=== PATIENT | male | born 1945 | race Caucasian/White ===

== ENCOUNTER 2024-07-17 17:18 | Emergency (ER) | payer MEDICARE, OTHER ==
--- NOTE | 2024-07-17 17:27 | ERPHSYRPT ---
- History of Present Illness Time Seen by Provider: 07/17/24 17:27 Source: patient, family Exam Limitations: no limitations Physician History: This is a morbidly obese 78-year-old white male patient who receives his wound care and medical care out of the [facility]. Patient was visited by the [facility] nurse today and there was a scheduled dressing change which was performed. Because of the sweet pungent odor of layer of yellowgreen covering to his left lower extremity wound and associated redness, pain and swelling to the wound site on the left lower extremity, patient was told to come to the emergency department for evaluation. Patient's last antibiotic was over a month ago. In the last few days he has been feeling ill with muscle aches and pains cough and a headache. Patient has a history of hypothyroidism, prostate issues, gout and is on Plavix. He does not have chest pain. Method of Injury: other (No new injury) Occurred: this afternoon Quality: aching Severity of Pain-Max: mild Severity of Pain-Current: mild Lower Extremities Pain: leg: left, foot: left, ankle: left Modifying Factors: Improves With: nothing Associated Symptoms: none Allergies/Adverse Reactions: ciprofloxacin [From Cipro] Allergy (Verified 07/17/24 17:49) loracarbef [From Lorabid] Allergy (Verified 07/17/24 17:49) Home Medications: Allopurinol 300 mg [Zyloprim 300 mg] 300 mg PO DAILY 07/17/24 [History] Aspirin EC 325 mg [Ecotrin 325 MG] 325 mg PO DAILY 07/17/24 [History] Clopidogrel Bisulfate [Plavix] 75 mg PO DAILY 07/17/24 [History] Diltiazem HCl Cd [Cardizem CD ] 120 mg PO DAILY 07/17/24 [History] Fenofibrate Nanocrystallized [Fenofibrate] 48 mg PO DAILY 07/17/24 [History] Finasteride 5 mg [Proscar 5 MG] 5 mg PO DAILY 07/17/24 [History] Furosemide 40 mg [Lasix 40 MG] 40 mg PO DAILY 07/17/24 [History] Gabapentin [Neurontin ] 600 mg PO BID 07/17/24 [History] Insulin Glargine,Hum.rec.anlog [Liliana Chapmanostar] 74 unit SQ DAILY 07/17/24 [History] Levothyroxine Sodium 175 mcg PO DAILY 07/17/24 [History] Losartan Potassium [Cozaar] 100 mg PO DAILY 07/17/24 [History] Metformin HCl 500 mg [Glucophage 500 MG] 500 mg PO BID 07/17/24 [History] Metoprolol Succinate [Toprol Xl] 100 mg PO BID 07/17/24 [History] Nitroglycerin 0.4 mg Tablet [Nitrostat 0.4 MG Tablet] 0.4 mg PO Q5MIN PRN MR X 3 PRN 07/17/24 [History] Pravastatin Sodium 40 mg PO DAILY 07/17/24 [History] Semaglutide [Ozempic] 1 mg SQ WEEKLY 07/17/24 [History] Travel Risk - International Travel Have you traveled outside of the country in past 3 weeks: No - Emerging Infectious Disease Are you exhibiting symptoms associated with any current EIDs: Yes Symptoms: Cough: New Onset, Headaches/Body Aches/ - Review of Systems Constitutional: No Symptoms Eyes: No Symptoms Ears, Nose, & Throat: No Symptoms Respiratory: Cough Cardiac: No Symptoms Abdominal/Gastrointestinal: No Symptoms Genitourinary Symptoms: No Symptoms Musculoskeletal: No Symptoms Skin: Cellulitis, Other (Yellow-green slime layer left lower extremity wound) Neurological: No Symptoms Psychological: No Symptoms Endocrine: No Symptoms Hematologic/Lymphatic: No Symptoms Immunological/Allergic: No Symptoms All Other Systems: Reviewed and Negative - Past Medical History Pertinent Past Medical History: Yes - Past Surgical History Past Surgical History: Yes - Nursing Vital Signs Nursing Vital Signs: Initial Vital Signs Temperature 98.9 F 07/17/24 17:50 Pulse Rate 90 07/17/24 17:50 Respiratory Rate 20 07/17/24 17:50 Blood Pressure 175/98 07/17/24 17:50 O2 Sat by Pulse Oximetry 97 07/17/24 17:50 Pain Scale Pain Intensity 8 - Physical Exam General Appearance: mild distress, alert, anxiety, obese Eyes, Ears, Nose, Throat Exam: normal ENT inspection, moist mucous membranes Neck Exam: normal inspection, non-tender, supple, full range of motion Cardiovascular/Respiratory Exam: chest non-tender, normal breath sounds, heart sounds normal, no respiratory distress, No regular rate/rhythm Gastrointestinal/Abdominal Exam: non-tender Back Exam: normal inspection, normal range of motion, No CVA tenderness, No vert ebral tenderness Hips Exam: bilateral: non-tender, normal inspection, normal range of motion, no evidence of injury Legs Exam: right leg: non-tender, normal inspection, left leg: soft tissue tenderness (Yellowish-green pungent odor slime layer circumferential mid lower extremity below the knee knee), swelling (Cellulitis), bilateral leg: normal ran ge of motion, no evidence of injury Knees Exam: bilateral knee: non-tender, normal inspection, normal range of motion, no evidence of injury Ankle Exam: right ankle: non-tender, normal inspection, left ankle: soft tissue tenderness, swelling (Cellulitis), bilateral ankle: normal range of motion, no evidence of injury Foot Exam: right foot: non-tender, normal inspection, left foot: soft tissue tenderness, swelling (Cellulitis), bilateral foot: normal range of motion, no evidence of injury Neuro/Tendon Exam: normal sensation, normal motor functions, normal tendon functions, responds to pain, no evidence tendon injury Mental Status Exam: alert, oriented x 3, cooperative Skin Exam: other (See above. Yellowish-green slime layer drainage with pungent odor and cellulitis left lower extremity below the knee) SpO2 Interpretation: normal O2 Delivery: Room Air - Course Nursing assessment & vital signs reviewed: Yes Ordered Tests: Active Orders 24 hr Category Date Time Status IV Insertion STAT Care 07/17/24 18:17 Active Wound Care STAT Care 07/17/24 18:15 Active CHEST 1 VIEW (PORTABLE) Stat Exams 07/17/24 18:18 Taken BLOOD CULTURE Stat Lab 07/17/24 19:15 Received CBC W DIFF Stat Lab 07/17/24 18:15 Completed CMP Stat Lab 07/17/24 18:15 Completed CULTURE,WOUND Stat Lab 07/17/24 18:17 Received Lactic Acid Stat Lab 07/17/24 18:17 Completed Lactic Acid Stat Lab 07/17/24 20:26 Stop Req PROCALCITONIN Stat Lab 07/17/24 18:15 Completed Medication Summary Generic Name Dose Route Start Last Admin Trade Name Freq PRN Reason Stop Dose Admin Ceftazidime 1 gm/ Dextrose 100 mls @ 200 mls/hr 07/17/24 22:00 IV 08/16/24 21:59 Q8HT DEWEY Discontinued Medications Generic Name Dose Route Start Last Admin Trade Name Tato PRN Reason Stop Dose Admin Hydrocodone Bitart/Acetaminophen 10 ml 07/17/24 18:18 07/17/24 18:24 Hydrocodone/Acetaminophen 5 Ml Udcup PO 07/17/24 18:19 10 ml STAT STA Administration Hydrocodone Bitart/Acetaminophen Confirm 07/17/24 18:23 Hydrocodone/Acetaminophen 5 Ml Udcup Administered 07/17/24 18:24 Dose 10 ml .ROUTE .STK-MED ONE Diphenhydramine HCl 25 mg 07/17/24 20:33 Diphenhydramine Hcl 50 Mg/Ml Vial IV 07/17/24 20:34 STAT ONE Diphenhydramine HCl Confirm 07/17/24 20:39 Diphenhydramine Hcl 50 Mg/Ml Vial Administered 07/17/24 20:40 Dose 50 mg .ROUTE .STK-[employer] ONE Lab/Rad Data: Laboratory Result Diagrams 07/17/24 18:15 07/17/24 18:15 Laboratory Results 07/17/24 07/17/24 07/17/24 Range/Units 19:16 18:17 18:15 WBC (4.23-9.07) x10^3/uL RBC (4.63-6.08) x10^6/uL Hgb (13.7-17.5) g/dL Hct (40.1-51.0) % MCV (79.0-92.2) fL MCH (25.7-32.2) pg MCHC (32.3-36.5) g/dL RDW (11.6-14.4) % Plt Count (163-337) x10^3/uL MPV (9.4-12.4) fL Gran % (34.0-67.9) % Immature Gran % (Auto) (0.001-0.429) % Nucleat RBC Rel Count (0.00-0.2) % Eos # (Auto) (0.04-0.54) x10^3/uL Immature Gran # (Auto) (0.001-0.031) x10^3u/L Absolute Lymphs (auto) (1.32-3.57) x10^3/uL Absolute Monos (auto) (0.30-0.82) x10^3/uL Absolute Nucleated RBC (0.00-0.012) x10^3u/L Lymphocytes % (21.8-53.1) % Monocytes % (5.3-12.2) % Eosinophils % (0.8-7.0) % Basophils % (0.2-1.2) % Absolute Granulocytes (1.78-5.38) x10^3/uL Basophils # (0.01-0.08) x10^3/uL Sodium (135-145) mmol/L Potassium (3.5-5.1) mmol/L Chloride (98-107) mmol/L Carbon Dioxide (22-30) mmol/L Anion Gap (5-15) MEQ/L BUN (9-20) mg/dL Creatinine (0.66-1.25) mg/dL Estimated GFR ML/MIN Glucose (74-106) mg/dL Lactic Acid 2.5 H (0.4-2.0) Calcium (8.4-10.2) mg/dL Total Bilirubin (0.2-1.3) mg/dL AST (17-59) U/L ALT (0-50) U/L Alkaline Phosphatase (38-126) U/L Serum Total Protein (6.3-8.2) g/dL Albumin (3.5-5.0) g/dL Procalcitonin 0.094 H (0.030-0.080) ng/mL Influenza Type A Ag NEGATIVE (NEGATIVE) Influenza Type B Ag NEGATIVE (NEGATIVE) RSV (PCR) NEGATIVE (NEGATIVE) SARS-CoV-2 (PCR) POSITIVE A (NEGATIVE) 07/17/24 07/17/24 Range/Units 18:15 18:15 WBC 7.2 (4.23-9.07) x10^3/uL RBC 4.12 L (4.63-6.08) x10^6/uL Hgb 11.8 L (13.7-17.5) g/dL Hct 36.9 L (40.1-51.0) % MCV 89.6 (79.0-92.2) fL MCH 28.6 (25.7-32.2) pg MCHC 32.0 L (32.3-36.5) g/dL RDW 14.0 (11.6-14.4) % Plt Count 232 (163-337) x10^3/uL MPV 10.5 (9.4-12.4) fL Gran % 72.4 H (34.0-67.9) % Immature Gran % (Auto) 1.1 H (0.001-0.429) % Nucleat RBC Rel Count 0.0 (0.00-0.2) % Eos # (Auto) 0.05 (0.04-0.54) x10^3/uL Immature Gran # (Auto) 0.08 H (0.001-0.031) x10^3u/L Absolute Lymphs (auto) 1.11 L (1.32-3.57) x10^3/uL Absolute Monos (auto) 0.71 (0.30-0.82) x10^3/uL Absolute Nucleated RBC 0.00 (0.00-0.012) x10^3u/L Lymphocytes % 15.4 L (21.8-53.1) % Monocytes % 9.8 (5.3-12.2) % Eosinophils % 0.7 L (0.8-7.0) % Basophils % 0.6 (0.2-1.2) % Absolute Granulocytes 5.24 (1.78-5.38) x10^3/uL Basophils # 0.04 (0.01-0.08) x10^3/uL Sodium 143 (135-145) mmol/L Potassium 3.7 (3.5-5.1) mmol/L Chloride 105 (98-107) mmol/L Carbon Dioxide 25 (22-30) mmol/L Anion Gap 15.8 H (5-15) MEQ/L BUN 20 (9-20) mg/dL Creatinine 1.17 (0.66-1.25) mg/dL Estimated GFR 64.6 ML/MIN Glucose 120 H (74-106) mg/dL Lactic Acid (0.4-2.0) Calcium 9.4 (8.4-10.2) mg/dL Total Bilirubin 0.40 (0.2-1.3) mg/dL AST 43 (17-59) U/L ALT 31 (0-50) U/L Alkaline Phosphatase 55 (38-126) U/L Serum Total Protein 7.8 (6.3-8.2) g/dL Albumin 4.0 (3.5-5.0) g/dL Procalcitonin (0.030-0.080) ng/mL Influenza Type A Ag (NEGATIVE) Influenza Type B Ag (NEGATIVE) RSV (PCR) (NEGATIVE) SARS-CoV-2 (PCR) (NEGATIVE) - Progress Progress: unchanged Progress Note: 07/17/24 18:43 My medical decision making and the assignment of moderate complexity to this patient's medical issue today is based on review of the patient's past medical history, review the patient's medication list, review of patient drug allergy l ist, history present illness and physical findings on examination. The workup in this patient includes placement of intravenous line, CBC, CMP, lactic acid level, blood cultures, wound cultures. We will also perform viral test and a chest x-ray. Differential diagnosis includes but is not limited to Pseudomonas left lower extremity wound infection, pneumonia, cellulitis 07/17/24 20:29 I interpreted the patient's laboratory data results. Based on the laboratory data results, the patient is tested positive for COVID. The wound culture is pending. The blood culture results are pending as well. The chest x-ray preliminary report was interpreted by me. There is question of early bibasilar infiltrates/groundglass appearance. The patient states that he is allergic to Lorabid. His reaction was rash. However, he also states that he has been given cephalosporin in the past. The name he does not recall. He was told to watch closely for this type of reaction with the cephalosporin. However he never had a reaction to that medication. We will plate give him a dose of Fortaz 1 mg intravenously and then if he has no reaction we will send a prescription of Levaquin to his pharmacy. Patient has used cephalosporin several times in the past without untoward side effects 07/17/24 20:43 Patient states that he has not short of breath. He has no chest pain. His room air oxygen saturation levels are 95 to 96%. The last antibiotics he was on was over a month ago. 07/17/24 20:46 Counseled pt/family regarding: lab results, diagnosis, need for follow-up, rad results Medical Desision Making - Independent Historian Additional History obtained from: Spouse - Diagnostic Testing Diagnostic test were ordered, analyzed, and reviewed by me: Yes Radiological Interpretation: Interpreted by me - Risk of complications The pt has a mod risk of morbidity or mortality based on: Need for prescription drug management - Departure Departure Disposition: Home Clinical Impression: COVID-19 virus infection, Left leg cellulitis Condition: Stable Critical Care Time: No Referrals: DOCTOR,NO FAMILY [Primary Care Provider] - Follow up/PCP as directed Additional Instructions: Call your primary care provider tomorrow, 07/18/2024 and make them aware that you have tested positive for COVID-19 infection. In addition, asked them to move up your wound care appointment to early next week if possible. Continue your [facility] home health care visits. Take your medications as prescribed. Prescriptions: Hydrocodone/Acetaminophen [Hydrocodone-Acetamn 7.5-325/15] 10 ml PO Q8H PRN #120 ml MDD 30 ml PRN Reason: Cough Levofloxacin [Levaquin 500 MG Tablet] 500 mg PO DAILY #7 tablet
[2024-07-17 18:19] VITALS: TEMP 98.9
[2024-07-17] MEDS ORDERED: HYDROCODONE-ACETAMIN 2.5-108/5 ML SOLUTION ONE (18:23)
[2024-07-17 18:24] LABS: Absolute Neutrophil Ct (ANC) 5.24 x10^3/uL (1.78-5.38); BASOPHIL % 0.6 % (0.2-1.2); Basophil (Absolute #) 0.04 x10^3/uL (0.01-0.08); Eosinophil % 0.7 % (0.8-7.0); Eosinophil (Absolute #) 0.05 x10^3/uL (0.04-0.54); Hematocrit 36.9 % (40.1-51.0); Hemoglobin 11.8 g/dL (13.7-17.5); IMMATURE GRAN # 0.08 x10^3u/L (0.001-0.031); IMMATURE GRAN % 1.1 % (0.001-0.429); Lymphocyte (Absolute #) 1.11 x10^3/uL (1.32-3.57); Lymphocytes % 15.4 % (21.8-53.1); Mean Cell Volume 89.6 fL (79.0-92.2); Mean Corpuscular Hemoglobin 28.6 pg (25.7-32.2); Mean Platelet Volume 10.5 fL (9.4-12.4); Monocyte (Absolute #) 0.71 x10^3/uL (0.30-0.82); Monocytes % 9.8 % (5.3-12.2); Neutrophil % 72.4 % (34.0-67.9); Platelet Count 232 x10^3/uL (163-337); Red Blood Count 4.12 x10^6/uL (4.63-6.08); White Blood Count 7.2 x10^3/uL (4.23-9.07)
[2024-07-17] MEDS: HYDROCODONE-ACETAMIN 2.5-108/5 ML SOLUTION PO STA (18:24)
[2024-07-17 18:30] LABS: ANION GAP 15.8 MEQ/L (5-15); BILIRUBIN,TOTAL 0.4 mg/dL (0.2-1.3); Calcium 9.4 mg/dL (8.4-10.2); Creatinine 1 1.17 mg/dL (0.66-1.25); EST GLOMERULAR FILTRATION RATE 64.6 ML/MIN; Potassium 3.7 mmol/L (3.5-5.1); Total Protein 7.8 g/dL (6.3-8.2)
[2024-07-17 19:58] LABS: INFLUENZA A NEGATIVE (NEGATIVE); INFLUENZA B NEGATIVE (NEGATIVE); RESPIRATORY SYNCTIAL VIRUS NEGATIVE (NEGATIVE)
[2024-07-17 20:08] LABS: SARS-CoV-2 Xpert Express POSITIVE (NEGATIVE)
[2024-07-17] MEDS ORDERED: BENADRYL 50 MG/ML ONE (20:39)
[2024-07-17] MEDS ORDERED: Dextrose 5%/Water IV Soln. 100ML PLUS BAG 100 ML IV ONE (21:44)
[2024-07-17] MEDS: BENADRYL 50 MG/ML IV ONE (21:44)
[2024-07-17] MEDS: Fortaz/Tazicef 1 GM in Dextrose 5%/Water IV Soln. 100ML PLUS BAG 100 ML IV SCH (21:44)
[2024-07-17 22:30] VITALS: BP 163/85; PULSE 99; RESP 25; O2SAT 94
--- NOTE | 2024-07-18 08:43 | XRAY ---
Indication: Cough. Comparison: None Portable chest demonstrates subtle right base infiltrate versus atelectasis. Remaining heart and left lung unremarkable. Bony thorax intact with osteopenia and mild degenerative changes.
== END 2024-07-17 22:46 | disposition home or self-care (01) ==
LOC: ED 17:18
DX: L03.116 Cellulitis of left lower limb (principal); U07.1 COVID-19; M79.10 Myalgia, unspecified site; R05.1 Acute cough; R51.9 Headache, unspecified; Z79.891 Long term (current) use of opiate analgesic; Z79.02 Long term (current) use of antithrombotics/antiplatelets; Z79.4 Long term (current) use of insulin; Z79.84 Long term (current) use of oral hypoglycemic drugs; Z79.85 Long-term (current) use of injectable non-insulin antidiabetic drugs; Z79.899 Other long term (current) drug therapy
CPT/HCPCS: 0241U; 36000; 36415; 71045; 80053; 83605; 84145; 85025; 87040; 87070; 87077; 87186; 96374; 99284; J0713; J1200; A9270-GY